=== PATIENT | male | born 1955 | race African-American/Black ===

== ENCOUNTER 2016-09-23 14:18 | Emergency (ER) | payer OTHER ==
[~2016-09-23] VITALS: Ht 167.6 cm; Wt 73.2 kg
[~2016-09-23 14:18] MED LIST: AMLO-511 PO; FERR-89 PO; OMEP20CA10 PO
[2016-09-23 18:08] LABS: BASOPHILS % (AUTO) 0.4 % (0.0-2.0); EOSINOPHILS % (AUTO) 0.9 % (1.0-6.0); HEMATOCRIT 48.2 % (41-53); HEMOGLOBIN 15.7 g/dL (13.5-17.5); LYMPHOCYTES # (AUTO) 2.1 K/uL (1.0-4.8); LYMPHOCYTES % (AUTO) 24.5 % (22.0-44.0); MEAN CORPUSCULAR HEMOGLOBIN 30.7 pg (26.0-34.0); MEAN CORPUSCULAR HGB CONC 32.7 G/dL (31.0-37.0); MEAN CORPUSCULAR VOLUME 94 fL (80-100); MONOCYTES # (AUTO) 0.8 K/uL (0.1-1.0); MONOCYTES % (AUTO) 9.7 % (2.0-9.0); NEUTROPHILS # (AUTO) 5.5 K/uL (1.8-7.7); NEUTROPHILS % (AUTO) 64.5 % (40.0-70.0); PLATELET COUNT (AUTO) 235 K/uL (150-450); RED BLOOD CELL COUNT(AUTO) 5.12 MIL/uL (4.50-5.90); RED CELL DISTRIBUTION WIDTH 15.5 % (11.5-14.5); WHITE BLOOD COUNT (AUTO) 8.6 K/uL (4.5-11.0)
[2016-09-23 18:29] LABS: ANION GAP 12 mmol/L (8-16); CARBON DIOXIDE 25 mmol/L (22-29); CHLORIDE 102 mmol/L (98-107); CREATININE 1.17 mg/dL (0.60-1.30); GLOMERULAR FILTR. RATE CALC > 60 mL/min (>60); POTASSIUM 3.6 mmol/L (3.5-5.1); SODIUM SERUM 139 mmol/L (136-145); UREA NITROGEN, BLOOD 20 mg/dL (7-18)
[2016-09-23 18:35] LABS: ALANINE AMINOTRANSFERASE 28 U/L (12-78); ASPARTATE AMINOTRANSFERASE 30 U/L (15-37); BILIRUBIN,TOTAL 0.4 mg/dL (0.1-1.0); TOTAL PROTEIN, SERUM 9.1 g/dL (6.4-8.2)
[2016-09-23 19:25] VITALS: BP 135/81
== END 2016-09-23 19:37 | disposition home or self-care (01) ==
LOC: EMS 14:18
DX: M62.838 Other muscle spasm (principal); E11.9 Type 2 diabetes mellitus without complications; I10 Essential (primary) hypertension; F17.210 Nicotine dependence, cigarettes, uncomplicated
CPT/HCPCS: 93005; 99285

== ENCOUNTER 2018-08-17 12:40 | Emergency (ER) | payer OTHER ==
[~2018-08-17] VITALS: Ht 170.2 cm; Wt 75.9 kg
[2018-08-17] MEDS ORDERED: HYDROCODONE/ACETAMINOPHEN 5-325 MG TABLET PO ONE (16:30)
[2018-08-17 18:17] VITALS: BP 133/70
== END 2018-08-17 20:39 | disposition home or self-care (01) ==
LOC: EMS 12:42
DX: M25.551 Pain in right hip (principal); R03.0 Elevated blood-pressure reading, without diagnosis of hypertension; R10.31 Right lower quadrant pain; E11.9 Type 2 diabetes mellitus without complications; I10 Essential (primary) hypertension; F17.210 Nicotine dependence, cigarettes, uncomplicated
CPT/HCPCS: 72192; 73521

== ENCOUNTER 2019-09-01 16:57 | Emergency (ER) | payer OTHER ==
[~2019-09-01] VITALS: Ht 165.1 cm; Wt 70.5 kg
[~2019-09-01 16:57] MED LIST changes: -AMLO-511 PO; +AMLO5TAB9 PO; -OMEP20CA10 PO; +OMEP20CA12 PO
[2019-09-01 18:05] VITALS: BP 93/62
== END 2019-09-01 18:20 | disposition home or self-care (01) ==
LOC: EMS 16:57
DX: K59.00 Constipation, unspecified (principal); E11.9 Type 2 diabetes mellitus without complications; I10 Essential (primary) hypertension; F17.210 Nicotine dependence, cigarettes, uncomplicated; Z86.19 Personal history of other infectious and parasitic diseases; Z79.899 Other long term (current) drug therapy; Z98.890 Other specified postprocedural states
CPT/HCPCS: 99406

== ENCOUNTER 2023-12-28 10:56 | Emergency (ER) | payer MEDICARE, MEDICAID ==
[~2023-12-28] VITALS: Ht 165.1 cm; Wt 65.9 kg
[~2023-12-28 10:56] MED LIST changes: +AMLO-257 PO; -AMLO5TAB9 PO; -FERR-89 PO; +FERR325T27 PO
[2023-12-28 11:03] VITALS: TEMP 98.6
[2023-12-28] MEDS: IBUPROFEN 600 MG TABLET PO ONE (11:35)
[2023-12-28] MEDS ORDERED: LISI2.5T13 PO (11:35)
[2023-12-28] MEDS ORDERED: OMEP20CA12 PO (11:35)
[2023-12-28] MEDS ORDERED: METO-408 PO (11:35)
[2023-12-28] MEDS: ACETAMINOPHEN 500 MG TABLET PO ONE (11:35)
[2023-12-28] MEDS ORDERED: APIX5TAB PO (11:35)
[2023-12-28] MEDS ORDERED: ALBU18HF12 IH (11:35)
[2023-12-28] MEDS ORDERED: GABA600T10 PO (11:35)
[2023-12-28] MEDS ORDERED: NICO-703 TD (11:35)
[2023-12-28] MEDS ORDERED: AMLO5TAB66 PO (11:35)
[2023-12-28] MEDS ORDERED: CHLO25TA3 PO (11:35)
[2023-12-28] MEDS ORDERED: ACET-2247 PO (12:33)
[2023-12-28 13:08] VITALS: BP 111/61; PULSE 72; RESP 20
== END 2023-12-28 13:16 | disposition home or self-care (01) ==
LOC: EMS 11:23
DX: S83.91XA Sprain of unspecified site of right knee, initial encounter (principal); I10 Essential (primary) hypertension; F17.210 Nicotine dependence, cigarettes, uncomplicated; X58.XXXA Exposure to other specified factors, initial encounter; Y93.89 Activity, other specified; Y92.89 Other specified places as the place of occurrence of the external cause; Y99.8 Other external cause status
CPT/HCPCS: 93971; 99284; 73562-TC; Z7502; Z7610

== ENCOUNTER 2024-09-19 09:17 | Emergency (ER) | payer OTHER ==
[~2024-09-19] VITALS: Ht 167.6 cm; Wt 66.3 kg
[~2024-09-19 09:17] MED LIST changes: +ACET-2247 PO; +ALBU18HF12 IH; -AMLO-257 PO; +AMLO5TAB66 PO; +APIX5TAB PO; +CHLO25TA3 PO; -FERR325T27 PO; +GABA-1404 PO; +LISI2.5T13 PO; +METO-408 PO; +NICO-703 TD
[2024-09-19] MEDS: TraMADol HCL 50 MG TABLET PO ONE (14:08)
[2024-09-19 16:20] VITALS: TEMP 98.8
[2024-09-19] MEDS ORDERED: TRAM50TA5 PO (16:21)
[2024-09-19 17:16] VITALS: BP 123/84; PULSE 77; RESP 16; O2SAT 96
== END 2024-09-19 17:19 | disposition home or self-care (01) ==
LOC: EMS 09:23
DX: S40.012A Contusion of left shoulder, initial encounter (principal); I10 Essential (primary) hypertension; F17.210 Nicotine dependence, cigarettes, uncomplicated; Z79.01 Long term (current) use of anticoagulants; Z79.899 Other long term (current) drug therapy; W01.0XXA Fall on same level from slipping, tripping and stumbling without subsequent striking against object, initial encounter; Y93.89 Activity, other specified; Y92.89 Other specified places as the place of occurrence of the external cause; Y99.8 Other external cause status
CPT/HCPCS: 71046; 99284